=== PATIENT | female | born 2005 | race Caucasian/White ===

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

== ENCOUNTER 2025-03-02 15:36 | Emergency (ER) | payer OTHER, SELFPAY ==
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
--- OUTSIDE RECORDS SUMMARY | 2025-03-02 15:38 | XMS_ITS | Clinical Summary ---
Author Organization [facility] Address [address] [place] [address] Care Team Providers Care Water Conservation Specialist Name Role Phone Shahab Li MD Primary Care Provider [phone] Allergies No known active allergies Medications No known medications Immunizations Immunization Administration Dates Next Due COVID-19 MONOVALENT 12+ (Pfizer) 03/12/2021,02/08 DTAP (<7y) 2005,2005,2005 HIB (PRP-T) 2005,2005,2005 HepB, Unspecified 2005 Hepatitis B, Peds (Engerix-B/Recombivax HB) 07/12,2005 Pneumococcal (PCV 7) 2005,2005,06/01 Polio, Unspecified 2005 Poliovirus, inactivated (IPV) 2005, 005 Social History Tobacco Use Types Packs/Day Years Used Date Smoking Tobacco: Never Smokeless Tobacco: Never PHQ-2 Answer Date Recorded PHQ-2 Score 0 07/28/2021 Adolescent Education Answer Date Record ed Getting School Help Needed Not on file 07/03 Comments Unknown Sex and Gender Information Value Date Recorded Sex Assigned at Not on file Legal Sex Female 8:53 AM CDT Gender Identity Not on file Sexual Orientation Not on file Last Filed Vital Signs Vital Sign Reading Time Taken Comments Blood Pressure 111/72 07/28/2021 11:56 AM CDT Pulse 73 07/28/2021 11:56 AM CDT Temperature - - Respiratory Rate - - Oxygen Saturation - - Inhaled Oxygen Concentration - - Weight 62.4 kg (137 lb 9.1 oz) 07/28/20 11:05 AM CDT Height 66.7 cm (2' 2.26) 07/28/2021 11 :05 AM CDT Body Mass Index 140.26 07/28/2021 11:05 AM CDT Body Mass Index Percentile 100.00% 07/28 11:05 AM CDT Growth Chart: CDC (Girls, 2- 20 Years) Plan of Treatment Health Maintenance Due Date Last Done Comments ADVANCE CARE PLANNING 2005 ANNUAL REVIEW OF HM ORDERS 2005 CHLAMYDIA SCREENING 2005 YEARLY PREVENTIVE VISIT 2008 IPV IMMUNIZATION (4 of 4 - 4-dose series) 2009 2005, 2005, 2005 DTAP/TDAP/TD IMMUNIZATION (4 - Tdap) 2012 2005, 2005, 2005 VARICELLA IMMUNIZATION (1 of 2 - 13+ 2-dose series) 2018 HIV SCREENING 2020 HPV IMMUNIZATION (1 - 3-dose series) 2020 MENINGITIS B IMMUNIZATION (1 of 2 - Standard) 2021 HEPATITIS C SCREENING 2023 COVID-19 Vaccine (3 - 2023-2 5 season) 2024 03/12/2021, 02/19/2021 PHQ-2 (once per calendar year) 2024 07/28/2021 INFLUENZA VACCINE (Season Ended) 2025 ZOSTER IMMUNIZATION (1 of 2) 2055 HEPATITIS B IMMUNIZATION Completed 005, 2005, 2005 HIB IMMUNIZATION Aged Out 2005, 2005, 2005 No longer eligible based on patient's age to complete this topic Pneumococcal Vaccine: Pediatrics (0 to 5 Years) and At-Risk Patients (6 to 49 Years) Aged Out 2005, 2005, 2005 No longer eligible based on patient's age to complete this topic MENINGITIS IMMUNIZATION Aged Out No l onger eligible based on patient's age to complete this topic Insurance [facility] Care Teams Water Conservation Specialist Relationship Specialty Start Date End Date Shahab Li MD [facility] [id number] [facility] [address] [place] [address] PCP - General Pediatrics 06/17/21
--- OUTSIDE RECORDS SUMMARY | 2025-03-02 15:39 | XMS_ITS | Continuity of Care Document ---
Author Organization [place] - [facility] , [facility] Address [address] [place] [phone] Assessment Encounter Date Assessment Date Assessment LastModified [...] e 0.05 % topical solution 2024 025 [facility]/Pharmacy #[id number], [address] , [place], [address], 19:45:39 Patient TargetsNo targets recorded. Patient Instructions Encounter Date Encounter Id Patient Instructions Last Modified By Organization Details Last Modified Time 02/26/2025 [id number] dermatitis in children: care instructions [facility] Not available 02/26/2025 19:50:48 Reason for Referral [...] use any illicit or recreational drugs? No asbu Information not available 02/26/2025 Do you or [...] SNOMED-CT Code Diagnosis ICD10 Code Diagnosis Note [id number] CORA Porter [facility] [address] [facility] [address] [place] [address] 02/26/2025 19:14:42 02/26/2025 20:33:02 Irritant contact dermatitis caused by chemical [id number] L24.5 Health Concerns Section Related Observation LastModified by Organization Detai ls LastModified Time None Recorded Concern Status LastModified by Organization Details LastModified Time None Recorded Payers Encounter Date Sequence Insurance Name Policy Number Policy Adler Covered Member ID Adler Member ID Guarantor Name 02/26/2025 1 *SELF PAY* Payam Bersuch [id number] Payam Bersuch 02/26/2025 1 [facility] Payam Bersuch [id number] Payam Bersuch Notes Date Note Type Note Provider Name and Address Organization Details Recorded Time 02/26/2025 text/html Provider at the time of the visit [place] greeted. Patient name, , telephone number and location verified verbally with the patient. Telemedicine limitations reviewed, answered all questions the patient had about the telehealth interaction, and verbal consent obtained to treat.Pt is located the home address listed in the chart at the time of the televisit.Pt consents to Clinical Scribe use for this televisit.Age and [...] have agitated the condition further. Leisa Gallardo, [facility] [address] [facility] [address], [place], [address], [facility] 02/26/2025 19:50:56 OBGyn Episode No OBEpisode recorded.
[2025-03-02 15:42] VITALS: BP 138/72; PULSE 79; RESP 16; TEMP 36.1; O2SAT 100; BMI 22.6
--- NOTE | 2025-03-02 15:48 | PC.NURSE ---
Pt's father states she had seen pediatric cardiology a few years ago for chest discomfort, wore a halter monitor and was told she had delayed QT, nothing really came of it just wanted to tell you.
--- NOTE | 2025-03-02 16:10 | CRLHL7_ITS ---
For Patients: As a result of the Cures Act, medical imaging exams and procedure reports are released immediately into your electronic medical record. You may view this report before your referring provider. If you have questions, please contact your health care provider. INDICATION: : Cough. Tech note: METAL PIECE SEEN ON PA IMAGE IS PTS PONYTAIL WILLS COMPARISON: None TECHNIQUE: Two view(s) Of the chest FINDINGS: The cardiomediastinal silhouette and pulmonary vasculature are unremarkable. There is no focal airspace consolidation, pleural effusion, or pneumothorax. No displaced fractures. IMPRESSION: No acute cardiopulmonary process. Dictated by Navin Mina MD @ 03/02/2025 4:58:51 PM (Electronically Signed)
--- NOTE | 2025-03-02 16:38 | ED.GENADULT ---
HPI - General Adult General Date Seen: 03/02/25 Chief complaint: Chest Pain Stated complaint: Chest pain Time Seen by Provider: 03/02/25 16:00 History of Present Illness HPI narrative: Patient is a 19-year-old here with dad for evaluation of some left-sided chest pain which started yesterday. Generally it is pretty mild and dull, localized into the left upper chest with occasional radiation into the left lateral lower chest. Several times over the past day she has had perhaps 30 seconds where it is been sharper and pleuritic. She has not had any fevers, cough, lightheadedness or fainting, she has an IUD and is not on oral contraceptives. She has no significant medical history. [place] and feels like she has had a little bit of a cough since then, may have inhaled some extra dust. She also notes that her resting heart rate overnight was in the 40s according to her Apple watch. Has not taken any medications at home. She does not smoke or vape. Related Data Home Medications ?Medication ?Instructions ?Recorded ?Confirmed levonorgestrel 17.5 mcg/24 hr (up 1 device intrauterine ONCE 05/06/23 05/06/23 to 5 yrs) 19.5mg intrauterine device (Kyleena) Allergies Allergy/AdvReac Type Severity Reaction Status Date / Time No Known Drug Allergies Allergy Verified 09/23/23 10:50 Review of Systems Status of ROS: Reports: 6 or more systems reviewed and unremarkable except as noted in History and below PFSH PFSH Family History Grandmother Diabetes Cancer Grandfather Diabetes Stroke Heart disease Father Diabetes High cholesterol High blood pressure Sister FH: mental illness Mother High cholesterol Social History Narrative: Studying at the [employer]. Exam Narrative: Exam Narrative: Vital signs reviewed In general, alert, nontoxic young woman. Getting easily. Head: Normocephalic, atraumatic. Eyes: Sclera clear. Pupils equal and reactive. ENT: Mucous membranes moist. Neck: Supple without adenopathy. Heart: Regular rate and rhythm without murmur. Lungs: Clear. No increased work of breathing, crackles or wheezes. Chest wall nontender. Abdomen: Soft, nontender to palpation. Extremities: Well perfused, pulses intact. No significant edema. Neurologic: Alert, conversant. Speech fluent, face symmetric. Moves all extremities equally. Skin: Warm, dry well perfused. Affect: Normal. Const: Vital Signs, click to edit/add: Vital Signs - 24 hr 03/02/25 15:42 Temperature 97.0 F L Pulse Rate [Pulse Oximeter] 79 Respiratory Rate 16 Blood Pressure [Ri ght Upper Arm] 138/72 Pulse Oximetry 100 Oxygen Delivery Me thod Room Air Course Course ED Course: EKG shows sinus bradycardia, ventricular rate of 52. No acute ST segment changes. Corrected QT is 394. T-waves are unremarkable. Discussed that a resting heart rate in the 40s for a physically fit 19-year-old is not particularly atypical. She seems to be tolerating heart rate in low 50s here just fine, not particularly symptomatic and blood pressure is normal. She had a chest x-ray here which when I review is negative, no evidence of pneumothorax. Final radiology read is pending at this time. Overall, she is well appearing, symptoms are fairly benign, that she does have a pleuritic component, I do not think this represents PE, she is PERC negative. I think it is reasonable to treat conservatively, anti-inflammatories for few days, and if not improving follow-up with primary care. Discussed reasons to return such as severe pain, significant shortness of breath, fevers, fainting etcetera. She and her daughter comfortable with that plan. Vital Signs Vital signs: Initial Vital Signs Temperature 97.0 F L 03/02/25 15:42 Temperature Source Temporal Artery Scan 03/02/25 15:42 Pulse Rate 79 03/02/25 15:42 Pulse Rhythm Regular 03/02/25 15:42 Respiratory Rate 16 03/02/25 15:42 Blood Pressure 138/72 03/02/25 15:42 Blood Pressure Mean 94 03/02/25 15:42 Blood Pressure Position Sitting 03/02/25 15:42 Pulse Oximetry 100 03/02/25 15:42 Oxygen Delivery Method Room Air 03/02/25 15:42 Vital Signs Temperature 97.0 F L 03/02/25 15:42 Pulse Rate 79 03/02/25 15:42 Respiratory Rate 16 03/02/25 15:42 Blood Pressure 138/72 03/02/25 15:42 Pulse Oximetry 100 03/02/25 15:42 Oxygen Delivery Method Room Air 03/02/25 15:42 Temperature 97.0 F L 03/02/25 15:42 Pulse Rate 79 03/02/25 15:42 Respiratory Rate 16 03/02/25 15:42 Blood Pressure 138/72 03/02/25 15:42 Pulse Oximetry 100 03/02/25 15:42 Oxygen Delivery Method Room Air 03/02/25 15:42 Medical Decision Making Imaging Data Chest x-ray: Attestation: I have reviewed the pertinent imaging results. Radiologist's impression: Patient: AZIZA ROMEROANGELINA Facility: [facility] RIS Site . Site : 2005 Study: XRay-Chest 2 VIEW-03/02/2025 4:26:46 PM Ordering Physician: Kelly Ha Final Report: INDICATION: : Cough. Tech note: METAL PIECE SEEN ON PA IMAGE IS PTS PONYTAIL WILLS COMPARISON: None TECHNIQUE: Two view(s) Of the chest FINDINGS: The cardiomediastinal silhouette and pulmonary vasculature are unremarkable. There is no focal airspace consolidation, pleural effusion, or pneumothorax. No displaced fractures. IMPRESSION: No acute cardiopulmonary process. Discharge Plan Discharge Clinical Impression: Chest pain Patient Disposition: Home w/ Parent or Adult Condition: Stable Instructions: Chest Pain (DC) Additional Instructions: Ibuprofen 400 mg 3 times daily for 2 3 days. If not improving with conservative therapy, follow-up primary care. Return to the ER at any time for severe pain, significant shortness of breath, fevers, fainting or other worsening. Prescriptions: No Action Kyleena 17.5 mcg/24 hrs (5 yrs) 19.5 mg intrauterine device 1 device intrauterine ONCE Rx Instructions: as a single dose Follow Up/Referrals: Provider,Not a Local [Primary Care Provider, Family Practice] Stand Alone Forms: MyHealth Info Instructions
== END 2025-03-02 16:47 | disposition home or self-care (01) ==
PROVIDERS: Emergency Provider Emergency Medicine
DX: R07.9 Chest pain, unspecified (principal)
CPT/HCPCS: 71046; 93005; 99284